=== PATIENT | female | born 1945 | race Caucasian/White ===

== ENCOUNTER 2024-07-01 22:03 | Observation (INO) | payer OTHER ==
[~2024-07-01] VITALS: Ht 157.5 cm; Wt 50.9 kg
[2024-07-01] MEDS: LACTATED RINGERS 1000ML 1,000 ML IV ONE (22:18)
[2024-07-01 22:54] LABS: BASOPHILS # (AUTO) 0.06 K/uL (0.00-0.20); BASOPHILS % (AUTO) 0.8 % (0.0-5.0); EOSINOPHILS # (AUTO) 0.49 K/uL (0.00-0.70); EOSINOPHILS % (AUTO) 6.4 % (0.0-8.0); HEMATOCRIT 35.6 % (36-48); IMMATURE GRANULOCYTE ABSOLUTE 0.04 K/uL (0-1); LYMPHOCYTES # (AUTO) 2.2 K/uL (1.0-4.8); LYMPHOCYTES % (AUTO) 28.6 % (21.0-51.0); MEAN CORPUSCULAR HEMOGLOBIN 31.1 pg (27.0-33.0); MEAN CORPUSCULAR HGB CONC 35.7 g/dL (32.0-36.0); MONOCYTES # (AUTO) 0.6 K/uL (0.1-1.0); MONOCYTES % (AUTO) 7.7 % (3.0-13.0); NEUTROPHILS # (AUTO) 4.3 K/uL (1.8-7.7); PLATELET COUNT (AUTO) 265 K/uL (130-400); RED BLOOD CELL COUNT(AUTO) 4.09 MIL/uL (4.00-5.50); RED CELL DISTRIBUTION WIDTH 12.2 % (11.0-15.5); WHITE BLOOD COUNT (AUTO) 7.7 K/uL (4.8-10.8)
[2024-07-01 22:55] LABS: CREATININE 1.2 mg/dL (0.5-1.0); MAGNESIUM 1.6 mg/dL (1.80-2.40)
[2024-07-01 22:58] LABS: POTASSIUM 2.6 mmol/L (3.5-5.1)
[2024-07-01] MEDS: ondanSETRON 4MG INJ IVP ONE (23:06)
[2024-07-01] MEDS: PoTASSium BIcarbonate/CIT AC 25 MEQ TABLET.EFF PO ONE (23:16)
[2024-07-01] MEDS: MAGNESIUM 2GM PREMIX 50ML 50 ML IV STA (23:18)
[2024-07-01] MEDS: PoTASSium chloRIDE 10MEQ/100ML 100 ML IV ONE (23:19)
[2024-07-01 23:39] LABS: B-TYPE NATRIURETIC PEPTIDE 92 pg/mL (0-100)
[2024-07-01 23:46] LABS: INR 0.98 (0.85-1.15); PROTHROMBIN TIME 10.6 SEC (9.6-11.6)
[2024-07-01 23:47] LABS: PARTIAL THROMBOPLASTIN TIME 26.4 SEC (26.3-35.5)
[2024-07-02 00:29] LABS: APPEARANCE,URINE CLOUDY (CLEAR); BILIRUBIN,URINE NEGATIVE (NEGATIVE); COLOR,URINE COLORLESS (YELLOW); GLUCOSE, URINE (UA) NEGATIVE (NEGATIVE); KETONES,URINE NEGATIVE (NEGATIVE); LEUKOCYTE ESTERASE ,URINE 500 Leu/uL (NEGATIVE); NITRATE,URINE NEGATIVE (NEGATIVE); PROTEIN,URINE NEGATIVE (NEGATIVE); UROBILINOGEN,URINE 0.2 mg/dL (0.2-1.0)
[2024-07-02 00:31] LABS: ADD UA MICROSCOPIC YES
[2024-07-02 00:33] LABS: BACTERIA,URINE MOD /HPF (None Seen); MUCUS,URINE RARE LPF (None Seen); OTHER CASTS, URINE 3 /LPF (None Seen); RBC,URINE 0-1 /HPF (0-1); SQUAMOUS EPITHELIAL CELL,UR RARE /HPF (0-2); WBC CLUMP RARE /HPF (0-1); WBC,URINE TNTC /HPF (0-1)
[2024-07-02] MEDS ORDERED: hydrALAZine 20MG/ML VIAL IV PRN (01:00)
[2024-07-02] MEDS ORDERED: ondanSETRON 4MG INJ IV PRN (01:00)
[2024-07-02] MEDS: 0.9%NACL 1000ML 1,000 ML IV SCH (01:15)
[2024-07-02] MEDS: cefTRIAXone 1G VIAL IV SCH (01:15)
[2024-07-02 01:40] VITALS: BP 159/89; PULSE 62; RESP 18; TEMP 97.6; O2SAT 96
[2024-07-02 04:00] VITALS: BP 111/64; PULSE 59; RESP 18; TEMP 98.2
[2024-07-02 05:27] LABS: BASOPHILS # (AUTO) 0.03 K/uL (0.00-0.20); BASOPHILS % (AUTO) 0.3 % (0.0-5.0); EOSINOPHILS # (AUTO) 0.06 K/uL (0.00-0.70); EOSINOPHILS % (AUTO) 0.6 % (0.0-8.0); HEMATOCRIT 35.4 % (36-48); IMMATURE GRANULOCYTE ABSOLUTE 0.04 K/uL (0-1); LYMPHOCYTES # (AUTO) 1.4 K/uL (1.0-4.8); LYMPHOCYTES % (AUTO) 13.2 % (21.0-51.0); MEAN CORPUSCULAR HEMOGLOBIN 30.9 pg (27.0-33.0); MEAN CORPUSCULAR HGB CONC 35.3 g/dL (32.0-36.0); MEAN CORPUSCULAR VOLUME 87.4 fL (79-99); MONOCYTES # (AUTO) 0.5 K/uL (0.1-1.0); NEUTROPHILS # (AUTO) 8.4 K/uL (1.8-7.7); NEUTROPHILS % (AUTO) 80.5 % (40.0-77.0); PLATELET COUNT (AUTO) 265 K/uL (130-400); RED BLOOD CELL COUNT(AUTO) 4.05 MIL/uL (4.00-5.50); WHITE BLOOD COUNT (AUTO) 10.4 K/uL (4.8-10.8)
[2024-07-02 05:52] LABS: ALBUMIN 2.7 g/dL (3.5-5.0); BILIRUBIN,TOTAL 0.4 mg/dL (0.2-1.0); CREATININE 1.2 mg/dL (0.5-1.0); MAGNESIUM 2.1 mg/dL (1.80-2.40); POTASSIUM 3.5 mmol/L (3.5-5.1); THYROID STIMULATING HORMONE 1.7 uIU/mL (0.36-3.74); TOTAL PROTEIN, SERUM 6.9 g/dL (6.0-8.3)
[2024-07-02] MEDS: PoTASSium chloRIDE 20MEQ/100ML 100 ML IV PRN (06:07)
[2024-07-02 08:00] VITALS: BP 156/78; PULSE 58; RESP 18; TEMP 97.9; O2SAT 98
[2024-07-02] MEDS: FAMOTIDINE 20MG VIAL IV SCH (08:31)
[2024-07-02] MEDS ORDERED: PoTASSium chl 10% ELIXIR 20MEQ 20 MEQ/15 ML UDCUP PO PRN (10:30)
[2024-07-02] MEDS ORDERED: PoTASSium chloRIDE 10MEQ/100ML 100 ML IV PRN (10:30)
[2024-07-02] MEDS ORDERED: ATEN50TA PO (11:20)
[2024-07-02] MEDS ORDERED: HYDR25TA PO (11:20)
[2024-07-02] MEDS ORDERED: ALEN70TA80 PO (11:20)
[2024-07-02] MEDS: PoTASSium chloRIDE 10MEQ SR 10 MEQ/TAB TAB.SR.24H PO PRN (11:28)
[2024-07-02 12:00] VITALS: BP_SYST 145; BP_SYST 151; BP_SYST 153; BP_DIAS 80; BP_DIAS 86; BP_DIAS 87; PULSE 58; PULSE 59; PULSE 63; RESP 18; TEMP 98.3
[2024-07-02 16:00] VITALS: BP 133/74; PULSE 63; RESP 18; TEMP 98.7
[2024-07-02 20:00] VITALS: BP 127/77; PULSE 63; RESP 20; TEMP 98.3; O2SAT 98
[2024-07-03] VITALS: BP 120/78; PULSE 76; RESP 20; TEMP 97.9
[2024-07-03] MEDS: CEFTRIAXONE 2GM VIAL IVPB SCH (00:22)
[2024-07-03 03:59] LABS: BASOPHILS # (AUTO) 0.05 K/uL (0.00-0.20); BASOPHILS % (AUTO) 0.7 % (0.0-5.0); EOSINOPHILS # (AUTO) 0.32 K/uL (0.00-0.70); EOSINOPHILS % (AUTO) 4.7 % (0.0-8.0); HEMATOCRIT 35.7 % (36-48); IMMATURE GRANULOCYTE ABSOLUTE 0.03 K/uL (0-1); LYMPHOCYTES # (AUTO) 1.9 K/uL (1.0-4.8); LYMPHOCYTES % (AUTO) 28.4 % (21.0-51.0); MEAN CORPUSCULAR HEMOGLOBIN 31.4 pg (27.0-33.0); MEAN CORPUSCULAR VOLUME 89.7 fL (79-99); MONOCYTES # (AUTO) 0.6 K/uL (0.1-1.0); NEUTROPHILS # (AUTO) 3.8 K/uL (1.8-7.7); NEUTROPHILS % (AUTO) 56.8 % (40.0-77.0); PLATELET COUNT (AUTO) 239 K/uL (130-400); RED BLOOD CELL COUNT(AUTO) 3.98 MIL/uL (4.00-5.50); RED CELL DISTRIBUTION WIDTH 12.1 % (11.0-15.5); WHITE BLOOD COUNT (AUTO) 6.8 K/uL (4.8-10.8)
[2024-07-03 04:00] VITALS: BP 134/86; PULSE 63; RESP 20; TEMP 98
[2024-07-03 04:14] LABS: ALBUMIN 2.6 g/dL (3.5-5.0); BILIRUBIN,TOTAL 0.4 mg/dL (0.2-1.0); CREATININE 1.2 mg/dL (0.5-1.0); MAGNESIUM 1.9 mg/dL (1.80-2.40); POTASSIUM 3.5 mmol/L (3.5-5.1); TOTAL PROTEIN, SERUM 6.5 g/dL (6.0-8.3)
[2024-07-03] MEDS: MAGNESIUM 2GM PREMIX 50ML 50 ML IV PRN (05:13)
[2024-07-03 08:00] VITALS: BP 136/84; PULSE 64; RESP 18; TEMP 98.2; O2SAT 97
[2024-07-03] MEDS: hydroCHLOROthiazide 25 MG TABLET PO SCH (08:41)
[2024-07-03 12:00] VITALS: BP 146/80; PULSE 55; RESP 18; TEMP 98.4
[2024-07-03] MEDS: PoTASSium chloRIDE 20MEQ ER 20 MEQ ERTAB PO ONE (13:09)
[2024-07-03] MEDS ORDERED: FAMOTIDINE 20MG VIAL IV SCH (21:00)
[2024-07-09] MEDS ORDERED: ALENDRONATE SODIUM 35 MG TAB PO SCH (06:30)
== END 2024-07-03 13:25 | disposition home or self-care (01) ==
LOC: EDH 22:03 → INTOOBSV 07-02 00:44 → EDHIP 07-02 00:44 → 4AH 07-02 01:23
PROVIDERS: ADMIT Internal Medicine; ATTEND Internal Medicine
DX: E87.6 Hypokalemia (principal); E86.0 Dehydration; N17.9 Acute kidney failure, unspecified; N30.00 Acute cystitis without hematuria; E83.42 Hypomagnesemia; I10 Essential (primary) hypertension; R55 Syncope and collapse; E87.1 Hypo-osmolality and hyponatremia; R60.0 Localized edema; E87.8 Other disorders of electrolyte and fluid balance, not elsewhere classified; Z86.718 Personal history of other venous thrombosis and embolism; Z98.891 History of uterine scar from previous surgery
CPT/HCPCS: 96376 ×2; 96375 ×3; 82550; 83735 ×3; 84484 ×2; 80048; 83880; 85025 ×3; 85610; 85730; 71045; 99291; 96361 ×4; 93005; 96365; 96366; 84443; 80053 ×2; 87086 ×2; 87186; 81001; 36415 ×2; 70450; 93306; 93880; 96367; G0378 ×22; J3475 ×2; J2405; J3480 ×2; J3490 ×3; J0696 ×2; 96374